=== PATIENT | male | born 1970 | race Caucasian/White ===

== ENCOUNTER 2017-01-30 17:25 | Emergency (ER) | payer MEDICAID, OTHER ==
[~2017-01-30] VITALS: Ht 165.1 cm; Wt 95.0 kg
[2017-01-30 17:41] VITALS: Ht 165.1 cm; Wt 95.0 kg
[2017-01-30] MEDS ORDERED: ONDANSETRON 4 MG INJ IV STA (18:27)
[2017-01-30] MEDS ORDERED: morphine 4 MG/ML VIAL IV STA (18:27)
[2017-01-30] MEDS ORDERED: SOD CHLORIDE 0.9% 1,000 ML IV STA (18:27)
--- NOTE | 2017-01-30 18:31 | ERD ---
ER Documentation Chief Complaint Chief Complaint RLQ PAIN, SENT BY PMD TO R/O APPENDECTOMY HPI This is a 46-year-old male presenting to the emergency department complaining of right lower quadrant abdominal pain for the past month. Patient states that the pain has worsened in the past couple days, he rates the pain 9 out of 10 and strong. He denies decreased appetite, fever, nausea vomiting diarrhea constipation. Patient was referred by his PCP today. he denies any abdominal surgeries ROS All systems reviewed and are negative except as per history of present illness. Medications Home Meds Active Scripts Ibuprofen* (Ibuprofen*) 400 Mg Tablet, 400 MG PO Q6H Y for PAIN, #30 TAB Prov:ALVARO GARZA PA-C 01/30/17 Allergies Allergies: Coded Allergies: No Known Allergy (Unverified , 01/30/17) Physical Exam Vitals Vital Signs Date Time Temp Pulse Resp B/P Pulse Ox O2 Delivery O2 Flow Rate FiO2 01/30/17 17:41 99.7 77 18 163/79 98 Physical Exam GENERAL: well-developed/well-nourished, in no apparent distress, non-toxic appearing HENT: NC/AT, moist mucous membranes EYES: Conjunctiva normal NECK: Supple, no lymphadenopathy PULM: CTA bilaterally, no rales, rhonchi, or wheezing heard CV: Normal S1S2, RRR, good capillary refill GI: Soft, non-distended, tender to palpation right lower quadrant Normal bowel sounds, no masses or organomegaly felt on exam No gross peritonitis, no bruits Negative Rovsing, negative Sue, negative McBurney's point, Negative CVAT BACK: No masses EXT: No clubbing, cyanosis, or edema NEURO: Alert and Orientated SKIN: Intact, normal turgor PSYCH: Normal mood and mentation Result Diagram: 01/30/175 01/30/17 1845 Results 24 hrs Laboratory Tests Test 01/30/17 18:45 White Blood Count 9.310^3/ul Red Blood Count 5.0910^6/ul Hemoglobin 13.8g/dl Hematocrit 43.3% Mean Corpuscular Volume 85.1fl Mean Corpuscular Hemoglobin 27.1pg Mean Corpuscular Hemoglobin Concent 31.9g/dl Red Cell Distribution Width 16.5% Platelet Count 16840^3/UL Mean Platelet Volume 11.2fl Neutrophils % 56.2% Lymphocytes % 36.1% Monocytes % 6.3% Eosinophils % 0.9% Basophils % 0.2% Nucleated Red Blood Cells % 0.0/100WBC Neutrophils # 5.210^3/ul Lymphocytes # 3.410^3/ul Monocytes # 0.610^3/ul Eosinophils # 0.110^3/ul Basophils # 0.010^3/ul Nucleated Red Blood Cells # 0.010^3/ul Urine Color YELLOW Urine Clarity CLEAR Urine pH 6.0 Urine Specific [place] 1.014 Urine Ketones NEGATIVEmg/dL Urine Nitrite NEGATIVEmg/dL Urine Bilirubin NEGATIVEmg/dL Urine Urobilinogen NEGATIVEmg/dL Urine Leukocyte Esterase NEGATIVELeu/ul Urine Hemoglobin NEGATIVEmg/dL Urine Glucose NEGATIVEmg/dL Urine Total Protein NEGATIVEmg/dl Sodium Level 143mmol/L Potassium Level 3.5mmol/L Chloride Level 103mmol/L Carbon Dioxide Level 24mmol/L Anion Gap 20 Blood Urea Nitrogen 12mg/dl Creatinine 0.90mg/dl Glucose Level 136mg/dl Calcium Level 9.2mg/dl Total Bilirubin 1.3mg/dl Direct Bilirubin 0.00mg/dl Indirect Bilirubin 1.3mg/dl Aspartate Amino Transf (AST/SGOT) 48IU/L Alanine Aminotransferase (ALT/SGPT) 72IU/L Alkaline Phosphatase 128IU/L Total Protein 8.3g/dl Albumin 4.5g/dl Globulin 3.80g/dl Albumin/Globulin Ratio 1.18 Lipase 260U/L Current Medications Medications (Trade) Dose Ordered Sig/Kaleb Route PRN Reason Start Time Stop Time Status Last Admin Dose Admin Sodium Chloride (NS) 1,000 ml @ 1,000 mls/hr Q1H STAT IV 01/30/17 18:27 01/30/17 19:26 DC 01/30/17 18:46 Morphine Sulfate (morphine) 4 mg ONCE STAT IV 01/30/17 18:27 01/30/17 18:29 DC 01/30/17 18:46 Ondansetron HCl (Zofran Inj) 4 mg ONCE STAT IV 01/30/17 18:27 01/30/17 18:29 DC 01/30/17 18:45 Procedures/MDM 46-year-old male presents emergency department complaining of right lower quadrant abdominal pain for the past month which has worsened the past couple days. Patient was seen at his primary care physician's office today at [facility]. Patient was found to have mild fluid distention of segments of the jejunum with no abrupt transition point identified consistent with ileus. No evidence of obstruction, appendicitis, diverticulitis. No evidence of acute abdominal pathology that reasons requiring for patient to stay in the hospital at this time. Patient has stable vital signs, he appears well to be discharged home to continue to follow-up with his primary care physician. Lab work was drawn. CBC did not show any evidence of leukocytosis or anemia. CMP did not show any evidence of renal or electrolyte abnormalities. Patient had mild elevated transaminases. Lipase was normal. UA did not show any evidence of hemoglobin or urinary tract infection. I have discussed with patient to be on a liquid diet until he feels better. I have given him copies of his paperwork. CT abd and pelvis without contrast 1. There is mild fluid distension of segments of jejunum with no abrupt transition point identified. The remaining bowel appears unremarkable without evidence of obstruction or inflammation. There is a normal vermiform appendix. 2. A 2 mm nonobstructing nephrolith is seen within the superior pole of the right kidney but the kidneys are otherwise unremarkable without evidence of urinary outflow obstruction or ureterolithiasis. The bladder appears normal. 3. Normal sized liver with a slightly nodular contour. This can be seen in cirrhotic change. 4. Small fat containing umbilical hernia 5. Mild atherosclerotic vascular calcification. 6. Discoid atelectasis of the base of the lingular segment of the left upper lobe. Departure Diagnosis: Primary Impression: Ileus Additional Impression: Abdominal pain Condition: Stable ALVARO GARZA PA-C Jan 30, 2017 18:31
[2017-01-30 19:15] LABS: BASOPHILS % 0.2 % (0.0-2.0); EOSINOPHILS # 0.1 10^3/ul (0.0-0.5); EOSINOPHILS % 0.9 % (0.0-7.0); HEMATOCRIT 43.3 % (42.0-52.0); HEMOGLOBIN 13.8 g/dl (14.0-18.0); LYMPHOCYTES # 3.4 10^3/ul (0.8-2.9); LYMPHOCYTES % 36.1 % (15.0-51.0); MEAN CORPUSCULAR HEMOGLOBIN 27.1 pg (29.0-33.0); MEAN CORPUSCULAR HGB CONC 31.9 g/dl (32.0-37.0); MEAN CORPUSCULAR VOLUME 85.1 fl (82.0-101.0); MEAN PLATELET VOLUME 11.2 fl (7.4-10.4); MONOCYTE # 0.6 10^3/ul (0.3-0.9); MONOCYTES % 6.3 % (0.0-11.0); NEUTROPHIL # 5.2 10^3/ul (1.6-7.5); NEUTROPHILS % 56.2 % (39.0-77.0); PLATELET COUNT 145 10^3/UL (140-415); RED BLOOD COUNT 5.09 10^6/ul (4.70-6.10); RED CELL DISTRIBUTION WIDTH 16.5 % (11.5-14.5); WHITE BLOOD COUNT 9.3 10^3/ul (4.8-10.8)
[2017-01-30 19:25] LABS: ADD UMIC NO; UR ASCORBIC ACID NEGATIVE (NEGATIVE); UR BILIRUBIN (Dip) NEGATIVE (NEGATIVE); UR BLOOD (Dip) NEGATIVE (NEGATIVE); UR CLARITY CLEAR (CLEAR); UR COLOR YELLOW (YELLOW); UR GLUCOSE (Dip) NEGATIVE (NEGATIVE); UR KETONES (Dip) NEGATIVE (NEGATIVE); UR LEUKOCYTE ESTERASE (Dip) NEGATIVE Leu/ul (NEGATIVE); UR NITRITE (Dip) NEGATIVE (NEGATIVE); UR SPECIFIC GRAVITY (Dip) 1.014 (1.003-1.030); UR TOTAL PROTEIN (Dip) NEGATIVE (NEGATIVE); UR UROBILINOGEN (Dip) NEGATIVE (NEGATIVE)
[2017-01-30 19:48] LABS: ALBUMIN 4.5 g/dl (3.3-4.9); ALBUMIN/GLOBULIN RATIO 1.18; BILIRUBIN,INDIRECT 1.3 mg/dl (0-1.1); BILIRUBIN,TOTAL 1.3 mg/dl (0.2-1.3); CALCIUM 9.2 mg/dl (8.4-10.2); CREATININE 0.9 mg/dl (0.61-1.24); POTASSIUM 3.5 mmol/L (3.5-5.1); TOTAL PROTEIN 8.3 g/dl (6.1-8.1)
--- NOTE | 2017-01-30 20:50 | RADRPT ---
PROCEDURE: CT Abdomen and Pelvis without contrast CLINICAL INDICATION: Right lower quadrant pain TECHNIQUE: Transaxial images were obtained through the abdomen and pelvis on a multi-slice scanner without the intravenous contrast administration. No oral contrast had previously been given. Sagit dionicio and coronal re-formations were subsequently reconstructed. One or more of the following dose reduction techniques were used: - Automated exposure control. - Adjustment of the mA and/or kV according to patient size. - Use of iterative reconstruction technique. Radiation dose: CTDIvol = 21.18 mGy; DLP = 1270.98 mGy-cm. COMPARISON: No prior studies are available for comparison. FINDINGS: Lung bases: Discoid atelectasis is seen within the lingular segment of the left upper lobe. Liver: Normal in size and in attenuation. The contour is slightly nodular. There is no focal lesion. Gallbladder: The wall is not thickened. No radiopaque stones are identified. Bile ducts: The intra and extrahepatic bile ducts are normal in caliber. Pancreas: Appears normal with no mass or inflammation evident. Spleen: Normal in size with no focal lesion. Adrenals: Normal with no mass identified. Kidneys, ureters and bladder: A 2 mm nonobstructing nephrolith is seen within a superior pole uzma of the right kidney. The kidneys are otherwise unremarkable without evidence of urinary outflow obst ruction. The ureters are normal in caliber and no ureteroliths are identified. The bladder appears u nremarkable. Reproductive organs: Unremarkable. Stomach and bowel: The stomach appears unremarkable. There is mild fluid distension of segments of j ejunum with no abrupt transition point identified. The ileum appears unremarkable. There is no evide nce of bowel obstruction or inflammation. Appendix: A normal vermiform appendix is evident. Peritoneum: No free intraperitoneal fluid or air is identified. There is a small fat containing umbi lical hernia. Aorta: Normal in caliber with no aneurysmal dilatation. There is minimal atherosclerotic vascular ca lcification. IVC: Unremarkable. Lymph nodes: No pathologically enlarged nodes are identified. Osseous structures: The osseous elements appear intact. IMPRESSION: 1. There is mild fluid distension of segments of jejunum with no abrupt transition point identified . The remaining bowel appears unremarkable without evidence of obstruction or inflammation. There is a normal vermiform appendix. 2. A 2 mm nonobstructing nephrolith is seen within the superior pole of the right kidney but the kid neys are otherwise unremarkable without evidence of urinary outflow obstruction or ureterolithiasis. The bladder appears normal. 3. Normal sized liver with a slightly nodular contour. This can be seen in cirrhotic change. 4. Small fat containing umbilical hernia 5. Mild atherosclerotic vascular calcification. 6. Discoid atelectasis of the base of the lingular segment of the left upper lobe. Physician Lissa Date Time Electronically viewed and signed by Pamela Benito Physician on 01/30/2017 20:50 RH/
[2017-01-30] MEDS ORDERED: IBUP400T22 PO (21:00)
== END 2017-01-30 21:10 | disposition home or self-care (01) ==
LOC: FTE 17:25
DX: K56.7 Ileus, unspecified (principal)
CPT/HCPCS: 36415; 74176; 80053; 81003; 83690; 85025; 96360; J2270; J2405; J7030; Z7502